=== PATIENT | male | born 1985 | race Caucasian/White ===

== ENCOUNTER 2021-09-10 11:48 | Emergency (ER) | payer OTHER ==
[2021-09-10 12:25] LABS: HEMOGLOBIN 16.2 gm/dl (14.0-17.5); RED BLOOD COUNT 5.72 M/UL (4.20-5.50); WHITE BLOOD COUNT 9.1 K/UL (4.5-11.0)
[2021-09-10 12:55] LABS: BUN/CREATININE RATIO 17 (0-10)
[2021-09-10] MEDS ORDERED: CYCLOBENZAPRINE5 MG PO (13:25)
[2021-09-10] MEDS ORDERED: NAPROXEN500 MG PO (13:25)
== END 2021-09-10 13:40 | disposition home or self-care (01) ==
LOC: ER1 11:48
PROVIDERS: Physician Assistant
DX: R51.9 Headache, unspecified (principal); I10 Essential (primary) hypertension; Z79.899 Other long term (current) drug therapy
CPT/HCPCS: 70450; 80053; 85025; 96374; 99284; J1885